=== PATIENT | male | born 1970 | race Caucasian/White ===

== ENCOUNTER 2021-06-26 10:49 | Emergency (ER) | payer MEDICAID ==
--- NOTE | 2021-06-26 11:26 | XRAY Report ---
PROCEDURE: Chest 1 View X-Ray INDICATIONS: Chest pain TECHNIQUE: One view of the chest was acquired. COMPARISON: 02/19/2015 FINDINGS: Surgical changes and devices: None. Lungs and pleura: No pleural effusions or pneumothorax. Lungs are clear. Mediastinum: Mediastinal contours appear normal. Heart size is normal. Bones and chest wall: No suspicious bony lesions. Overlying soft tissues appear unremarkable. IMPRESSION: No acute cardiopulmonary findings Reviewed by: Nikolay Giraldo MD on 06/26/2021 10:24 AM DEBORAH Approved by: Nikolay Giraldo MD on 06/26/2021 10:24 AM AKPATY Station ID: [id number]
[2021-06-26 11:30] LABS: BASOPHILS # (AUTO) 0.1 10^3/uL (0.0-0.1); BASOPHILS % (AUTO) 0.7 %; EOSINOPHILS # (AUTO) 0.2 10^3/uL (0.0-0.7); HCT - HEMATOCRIT 47.6 % (42.0-52.0); HGB - HEMOGLOBIN 16.7 g/dL (14.0-18.0); LYMPHOCYTES # (AUTO) 1.9 10^3/uL (1.5-3.5); LYMPHOCYTES % (AUTO) 20.1 %; MEAN CORPUSCULAR HGB CONC 35.1 g/dL (32.0-36.0); MEAN CORPUSCULAR VOLUME 88.5 fL (80.0-94.0); MEAN PLATELET VOLUME 9.8 fL (7.4-11.4); MONOCYTES # (AUTO) 0.6 10^3/uL (0.0-1.0); MONOCYTES % (AUTO) 6.7 %; NEUTROPHILS # (AUTO) 6.4 10^3/uL (1.5-6.6); PLT - PLATELET COUNT 252 10^3/uL (130-450); RED BLOOD COUNT 5.38 10^6/uL (4.70-6.10); RED CELL DISTRIBUTION WIDTH 12.2 % (12.0-15.0); WHITE BLOOD COUNT 9.2 x10^3/uL (4.8-10.8)
[2021-06-26] MEDS ORDERED: SODIUM CHLORIDE 0.9% 1,000 ML IV STA (11:40)
[2021-06-26] MEDS ORDERED: DEXAMETHASONE 10 MG/ML VIAL IVP STA (11:40)
--- NOTE | 2021-06-26 11:43 | ED Physician Documentation ---
PD HPI CHEST PAIN - Stated complaint Stated Complaint: CHEST PX - Chief complaint Chief Complaint: Cardiac - History obtained from History obtained from: Patient, Family - History of Present Illness Timing - onset: How many days ago (6) Timing - onset during: Rest Timing - duration: Days (6) Timing - details: Abrupt onset, Now resolved, Waxing and waning Quality: Sharp, Pain Location: Left chest, Upper back Improved by: Other (ibuprofen) Worsened by: Palpation, Position Associated symptoms: Other (anxious). No: Shortness of air, Diaphoresis, Nausea, Vomiting, Feeling faint / dizzy, General Weakness, Palpitations, Cough Similar symptoms before: Diagnosis (costochondritis) Recently seen: Not recently seen - Additional information Additional information: Appears well 51-year-old male with a history of anxiety and costochondritis has developed chest pain again. He states that he tends to get pretty excited when he has pain in the left side of his chest. First thing he talks about his a story when he was 10 years old of going to the hospital and having what sounds like a stress test done. The patient relates that 6 days ago he began to have issues with pain in the left chest with episodic sharp pain and this was improved by the use of ibuprofen. He does state that he usually walks 4 miles per day he has not had a change in his exercise tolerance.He has not been ill recently and has no exposure to Covid. He is unimmunized. Review of Systems Constitutional: denies: Fever Eyes: denies: Decreased vision Ears: denies: Ear pain Nose: denies: Congestion Throat: denies: Sore throat Cardiac: reports: Chest pain / pressure. denies: Palpitations Respiratory: denies: Dyspnea, Cough GI: denies: Nausea, Vomiting, Diarrhea : denies: Dysuria, Frequency PD PAST MEDICAL HISTORY - Past Medical History Cardiovascular: High cholesterol - Past Surgical History Past Surgical History: Yes General: Other - Present Medications Home Medications: Ambulatory Orders Medication Instructions Recorded Confirmed Atorvastatin [Lipitor] 10 mg PO DAILY 01/16/15 09/17/15 HYDROcod/ACETAM 5/325 [[place] 5/325] 1 - 2 ea PO Q6H PRN #15 tablet 09/27/15 Hydrocortisone Acetate [Anusol-Hc] 25 mg RC BID PRN #20 supp.rect 10/14/15 Ciprofloxacin HCl [Cipro] 500 mg PO BID #14 tablet 11/01/15 metroNIDAZOLE [Flagyl] 500 mg PO TID #20 tablet 11/01/15 - Allergies Allergies/Adverse Reactions: Allergies Allergy/AdvReac Type Severity Reaction Status Date / Time Penicillins Allergy Intermediate Rash Verified 06/26/21 11:02 buspirone HCl * [From BuSpar] AdvReac Severe Emesis Verified 06/26/21 11:02 cephalexin monohydrate * AdvReac Severe Emesis Verified 06/26/21 11:02 [From Keflex] - Social History Does the pt smoke?: No Smoking Status: Never smoker Does the pt drink ETOH?: No Does the pt have substance abuse?: No - Immunizations Immunizations are current?: Yes - POLST Patient has POLST: No PD ED PE NORMAL - Vitals Vital signs reviewed: Yes (Tachycardic and hypertensive) - General General: Alert and oriented X 3, Well developed/nourished, Other (Anxious appearing male wearing 3 masks) - HEENT HEENT: Atraumatic, PERRL, EOMI - Neck Neck: Supple, no meningeal sign, No bony TTP - Cardiac Cardiac: RRR, No murmur - Respiratory Respiratory: No respiratory distress, Clear bilaterally, Other (There is chest wall tenderness to the lateral chest wall and to the posterior chest wall over the rhomboid muscles on the left side.) - Abdomen Abdomen: Soft, Non tender - Back Back: No CVA TTP, No spinal TTP - Derm Derm: Normal color, Warm and dry, No rash - Extremities Extremities: No deformity, No edema - Neuro Neuro: Alert and oriented X 3, aircraft load controller 2-12 intact, No motor deficit, No sensory deficit, Normal speech Eye Opening: Spontaneous Motor: Obeys Commands Verbal: Oriented GCS Score: 15 - Psych Psych: Normal mood, Normal affect Results - Vitals Vitals: Vital Signs - 24 hr 06/26/21 06/26/21 10:58 11:36 Temperature 36.0 C L 36.5 C Heart Rate 106 H 99 Respiratory 21 16 Rate Blood Pressure 163/122 H 174/100 H O2 Saturation 97 96 Oxygen O2 Source Room air - EKG (time done) 1054 Rate: Rate (enter#) (99) Rhythm: NSR Ischemia: Q waves Other comments: Other comments (RV) Compare to prior EKG: Unchanged from prior EKG (SPT 02-19-2015 no changes) Computer interpretation: Agree with computer - Labs Labs: Laboratory Tests 06/26/21 06/26/21 06/26/21 11:15 11:15 11:15 WBC 9.2 RBC 5.38 Hgb 16.7 Hct 47.6 MCV 88.5 MCH 31.0 MCHC 35.1 RDW 12.2 Plt Count 252 MPV 9.8 Neut # (Auto) 6.4 Lymph # (Auto) 1.9 [place] # (Auto) 0.6 Eos # (Auto) 0.2 Baso # (Auto) 0.1 Absolute Nucleated RBC 0.00 Nucleated RBC % 0.0 Sodium 139 Potassium 3.9 Chloride 105 Carbon Dioxide 22 Anion Gap 12.0 BUN 16 Creatinine 0.9 Estimated GFR (MDRD) 89 Glucose 115 H Calcium 9.8 Total Bilirubin 1.0 AST 136 H ALT 268 H Alkaline Phosphatase 115 Troponin I High Sens 4.1 Total Protein 7.6 Albumin 5.1 Globulin 2.5 Albumin/Globulin Ratio 2.0 Lipase 33 - Rads (name of study) Chest Radiology: Prelim report reviewed (Impression: No acute cardiopulmonary findings.), EMP read indepedently, See rad report Procedures - IVC sono (time) 1130 Bedside IVC sono: IVC measures (cm) (0.74), Dehydration (est 1-2 liter deficit) PD MEDICAL DECISION MAKING - ED course Complexity details: reviewed results, re-evaluated patient, considered differential, d/w patient, d/w family ED course: 51-year-old male with chest wall pain is anxious has unchanged electrocardiogram and he is found to be dehydrated on interrogation the inferior vena cava. He is administered intravenous saline and dexamethasone. Departure - Departure Disposition: 01 Home, Self Care Clinical Impression: Fatty liver, Chest wall pain, Dehydration Condition: Stable Instructions: ED Chest Pain Costochondritis, ED Dehydration, NAFLD Follow-Up: [facility] [Provider Group]
[2021-06-26 11:48] LABS: ALBUMIN 5.1 g/dL (3.2-5.5); CALCIUM 9.8 mg/dL (8.5-10.3); CREATININE 0.9 mg/dL (0.6-1.2); POTASSIUM 3.9 mmol/L (3.5-5.0); TOTAL PROTEIN 7.6 g/dL (6.7-8.2)
[2021-06-26 13:10] VITALS: BP 145/99
== END 2021-06-26 13:10 | disposition home or self-care (01) ==
LOC: ED 10:49
DX: K76.0 Fatty (change of) liver, not elsewhere classified (principal); R07.89 Other chest pain; E86.0 Dehydration
CPT/HCPCS: 36415; 80053; 83690; 84484; 85025; 93005; 96361; 96374; 99284

== ENCOUNTER 2022-08-22 08:40 | Emergency (ER) | payer MEDICAID ==
[2022-08-22 08:58] VITALS: BP 156/96
[2022-08-22] MEDS ORDERED: DEXAMETHASONE 10 MG/ML VIAL IM STA (09:06)
[2022-08-22] MEDS ORDERED: HYDROmorphone 1 MG/ML CARPUJECT IM STA (09:06)
[2022-08-22] MEDS ORDERED: KETOROLAC 60 MG/2 ML VIAL IM STA (09:06)
--- NOTE | 2022-08-22 09:08 | ED Physician Documentation ---
PD HPI BACK PAIN - Stated complaint Stated Complaint: RT HIP PX - Chief complaint Chief Complaint: Back Pain - History obtained from History obtained from: Patient - Additional information Additional information: 52-year-old gentleman has had right low back pain radiating to the right hip for the last 5 days. No specific injury. Its much better if he is standing or having his back and hips flexed. It is worse with position changes and laying flat. There is no associated weakness, numbness, tingling in the legs. No saddle anesthesia or incontinence. No fevers. Review of Systems Constitutional: denies: Fever, Chills Eyes: reports: Reviewed and negative Cardiac: reports: Reviewed and negative Respiratory: reports: Reviewed and negative PD PAST MEDICAL HISTORY - Past Medical History Past Medical History: Yes Cardiovascular: High cholesterol Respiratory: None Neuro: None Endocrine/Autoimmune: None GI: None : None HEENT: None Psych: None Musculoskeletal: None Derm: None - Past Surgical History Past Surgical History: Yes General: Other - Present Medications Home Medications: Ambulatory Orders Medication Instructions Recorded Confirmed Cyclobenzaprine [Flexeril] 10 mg PO TID PRN #20 tablet 08/22/22 HYDROcod/ACETAM 5/325 [[place] 5/325] 1 - 2 tab PO Q6H PRN #15 tablet 08/22/22 Ibuprofen [Motrin] 800 mg PO Q8H PRN #30 tablet 08/22/22 - Allergies Allergies/Adverse Reactions: Allergies Allergy/AdvReac Type Severity Reaction Status Date / Time Penicillins Allergy Intermediate Rash Verified 08/22/22 08:46 buspirone HCl * [From BuSpar] AdvReac Severe Emesis Verified 08/22/22 08:46 cephalexin monohydrate * AdvReac Severe Emesis Verified 08/22/22 08:46 [From Keflex] - Social History Does the pt smoke?: No Smoking Status: Never smoker Does the pt drink ETOH?: No Does the pt have substance abuse?: No - Immunizations Immunizations are current?: No Immunizations: Other immun not current - POLST Patient has POLST: No PD ED PE NORMAL - Vitals Vital signs reviewed: Yes - General General: Alert and oriented X 3, No acute distress - Abdomen Abdomen: Normal bowel sounds, Soft, Non tender - Back Back: Other (Muscular tenderness in the right sciatic notch and low right par alumbar area) - Extremities Extremities: Other (The patient has equal and normal Achilles and patellar reflexes bilaterally. Normal sensation in all areas of the legs. Patient denies saddle anesthesia. Normal strength in flexion-extension at the ankles, knees, and flexion of the hips.) - Neuro Neuro: Alert and oriented X 3, Normal speech Results - Vitals Vitals: Vital Signs - 24 hr 08/22/22 08/22/22 08:47 08:57 Temperature 36.2 C L Heart Rate 95 82 Respiratory 16 16 Rate Blood Pressure 145/98 H 156/96 H O2 Saturation 100 100 Oxygen O2 Source Room air PD MEDICAL DECISION MAKING - ED course ED course: This patient has seemingly uncomplicated musculoskeletal back pain. The patient has no "red flags." Specifically denies IV drug use, fevers, incontinence, saddle anesthesia. Spinal epidural abscess was considered, given that the patient has no fever, is not diabetic, has no spinal tenderness, does not use IV drugs, and has no bilateral neurologic symptoms, the diagnosis of spinal epidural abscess is considered exceedingly unlikely. I am prescribing a short course of short-acting opioid pain medication for this patient. I have reviewed the patients MANAGER CHANGE and no concerning findings were noted. I have discussed that the opioids are for short term therapy only, and will not be refilled from the ED. Departure - Departure Disposition: 01 Home, Self Care Clinical Impression: Back pain, Sciatica Condition: Good Record reviewed to determine appropriate education?: Yes Instructions: ED Spasm Back No Trauma, ED Sciatica Prescriptions: Cyclobenzaprine [Flexeril] 10 mg PO TID PRN #20 tablet PRN Reason: Spasms Ibuprofen [Motrin] 800 mg PO Q8H PRN #30 tablet PRN Reason: PAIN &/OR FEVER HYDROcod/ACETAM 5/325 [[place] 5/325] 1 - 2 tab PO Q6H PRN #15 tablet PRN Reason: Pain Comments: I sent your prescriptions electronically to [facility] in [place]. Call your doctor to arrange a follow-up appointment, make the next available appointment. In the interim, return anytime if worse or if new symptoms develop. I am prescribing a short course of narcotic pain medication for you. These are potentially dangerous and addictive medications that should be used carefully. These medications may constipate you. Take an vdwn-wdo-dywdded stool softener (docusate) twice daily with plenty of water while taking these medications. If you go 24 hours without a bowel movement, take [id number]-nmirwtu miralax, per package instructions. Do not drink or drive while taking these medications. If you received narcotic or sedating medications while in the emergency department, do not drive for 24 hours. Store this medication in a safe, secure place and out of reach of children. It is a violation of federal law to give or sell this medication to another person or to use in a manner other than prescribed. The ED will not refill narcotic prescriptions, including prescriptions lost or stolen. To dispose of unwanted medications: 1. [facility] [address] in [place] has a medication drop box. They accept prescription medications (in pill form) Sunday through Sunday 9:00 a.m. to 5:00 p.m. 2. [facility] [employer] accepts prescription medications (in pill form only) for disposal year round. Call for more information. 3. Contact the [facility] for the next [facility] sponsored prescription drug collection event. , [phone], or [phone]; Note that many narcotic pain relievers also contain Tylenol/acetaminophen. Please ensure that your total dose of acetaminophen from all sources does not exceed 3 g (3000 mg) per day. Forms: Activity restrictions
--- OUTSIDE RECORDS SUMMARY | 2022-08-22 09:24 | EXTERNAL MEDICAL SUMMARY RPT | Continuity of Care Document ---
:1970 Author Organization [facility] Address [address] [place] [address] Phone Allergies and Intolerances date description facility type (no date) [facility] (unknown) Encounters No information. Functional Status No information. Immunizations No information. Medications date description facility hydrocortisone acetate 25 MG/ML / Pram oxine [facility] hydrochloride 10 MG/ML Rectal Cream Problems No information. Procedures date description facility Visit Code Hold All [facility] Results/Labs test date author facility value unit interpret ation Result panel 1 (unknown) (no (unknown) (unknown) (no value) (units (unk nown) date) unknown) (unknown) (no (unknown) (unknown) (no value) (units (unk nown) date) unknown) (unknown) (no (unknown) (unknown) [facility] (units (unknown) date) Medicine unknown) (unknown) (no (unknown) (unknown) [place], [place] (units ( unknown) date) [id number] unknown) (unknown) (no (unknown) (unknown) Draft (units (unkno wn) date) unknown) (unknown) (no (unknown) (unknown) Family Practice (units (unknown) date) Office Visit unknown) (unknown) (no (unknown) (unknown) HIVES (units (unkno wn) date) unknown) (unknown) (no (unknown) (unknown) NAUSEA (units (unkno wn) date) unknown) (unknown) (no (unknown) (unknown) (no value) (units (unk nown) date) unknown) (unknown) (no (unknown) (unknown) 05/29/22 (units (unkno wn) date) unknown) (unknown) (no (unknown) (unknown) 1313 (units (unkno wn) date) unknown) (unknown) (no (unknown) (unknown) [id number] (units (unkno wn) date) unknown) (unknown) (no (unknown) (unknown) Age/Sex: 52 / M (units (unknown) date) Date of Service: unknown) (unknown) (no (unknown) (unknown) Allergies (units (unkn own) date) unknown) (unknown) (no (unknown) (unknown) Attending Dr: (units ( unknown) date) Eva Carter unknown) Lucho (unknown) (no (unknown) (unknown) : 1970 (units (unknown) date) Acct:[id number] unknown) (unknown) (no (unknown) (unknown) Dept at (units (unkno wn) date) . unknown) (unknown) (no (unknown) (unknown) Documented By: (units (unknown) date) Eva Carter unknown) Lucho 05/29/22 (unknown) (no (unknown) (unknown) Family History (units (unknown) date) (Reviewed 12/27/20 unknown) @ 18:17 by VASU Parada) (unknown) (no (unknown) (unknown) Father Lipids (units ( unknown) date) abnormal unknown) (unknown) (no (unknown) (unknown) Intake (units (unkno wn) date) unknown) (unknown) (no (unknown) (unknown) Intake Note: (units (u nknown) date) unknown) (unknown) (no (unknown) (unknown) Intake performed (units (unknown) date) by: Rc Sibley unknown) (unknown) (no (unknown) (unknown) Intake- Clincial (units (unknown) date) Staff unknown) (unknown) (no (unknown) (unknown) Loc: [facility] (units (unkno wn) date) unknown) (unknown) (no (unknown) (unknown) Medical History (units (unknown) date) (Reviewed 12/27/20 unknown) @ 18:17 by VASU Parada) (unknown) (no (unknown) (unknown) No significant (units (unknown) date) medical problems unknown) (unknown) (no (unknown) (unknown) PFSH (units (unkno wn) date) unknown) (unknown) (no (unknown) (unknown) Patient: (units (unkno wn) date) Mushtaq Starks W unknown) MR#: [id number] (unknown) (no (unknown) (unknown) Pt presents with (units (unknown) date) painful unknown) hemorrhoids. (unknown) (no (unknown) (unknown) Reason For Visit (units (unknown) date) unknown) (unknown) (no (unknown) (unknown) Signed By: (units (unk nown) date) unknown) (unknown) (no (unknown) (unknown) Smoking Status: (units (unknown) date) Never smoker unknown) (unknown) (no (unknown) (unknown) This note may (units ( unknown) date) have been all or unknown) partially generated using voice recognition (unknown) (no (unknown) (unknown) Tobacco + (units (unkn own) date) Substance Use unknown) (unknown) (no (unknown) (unknown) Tobacco Status (units (unknown) date) unknown) (unknown) (no (unknown) (unknown) Visit Reasons: (units (unknown) date) Sore hemorrhoids unknown) (unknown) (no (unknown) (unknown) buspirone Allergy (units (unknown) date) (Unknown, unknown) Unverified 12/27/20 17:59) (unknown) (no (unknown) (unknown) cyclobenzaprine (units (unknown) date) Allergy (Mild, unknown) Unverified 12/27/20 17:59) (unknown) (no (unknown) (unknown) have occurred. If (units (unknown) date) there are any unknown) questions, please contact the Medical Records (unknown) (no (unknown) (unknown) may occur. (units (unk nown) date) Occasional unknown) wrong-word or 'sound-alike' substitutions may have (unknown) (no (unknown) (unknown) occurred due to (units (unknown) date) the inherent unknown) limitations of voice recognition software. Please (unknown) (no (unknown) (unknown) penicillin G (units (u nknown) date) Allergy (Mild, unknown) Unverified 12/27/20 17:59) (unknown) (no (unknown) (unknown) read the note (units ( unknown) date) carefully and unknown) recognize, using context, where these substitutions (unknown) (no (unknown) (unknown) software. 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 Result panel 2 (unknown) (no (unknown) (unknown) (no value) (units (unk nown) date) unknown) (unknown) (no (unknown) (unknown) (no value) (units (unk nown) date) unknown) (unknown) (no (unknown) (unknown) (no value) (units (unk nown) date) unknown) (unknown) (no (unknown) (unknown) 05/29/22 (units (unkno wn) date) unknown) (unknown) (no (unknown) (unknown) 13:17 (units (unkno wn) date) unknown) (unknown) (no (unknown) (unknown) [facility] (units (unknown) date) Medicine unknown) (unknown) (no (unknown) (unknown) [place] (units ( unknown) date) [id number] unknown) (unknown) (no (unknown) (unknown) Draft (units (unkno wn) date) unknown) (unknown) (no (unknown) (unknown) Family Practice (units (unknown) date) Office Visit unknown) (unknown) (no (unknown) (unknown) HIVES (units (unkno wn) date) unknown) (unknown) (no (unknown) (unknown) NAUSEA (units (unkno wn) date) unknown) (unknown) (no (unknown) (unknown) (no value) (units (unk nown) date) unknown) (unknown) (no (unknown) (unknown) 05/29/22 (units (unkno wn) date) unknown) (unknown) (no (unknown) (unknown) 1313 (units (unkno wn) date) unknown) (unknown) (no (unknown) (unknown) [id number] (units (unkno wn) date) unknown) (unknown) (no (unknown) (unknown) Age/Sex: 52 / M (units (unknown) date) Date of Service: unknown) (unknown) (no (unknown) (unknown) Allergies (units (unkn own) date) unknown) (unknown) (no (unknown) (unknown) Attending Dr: (units ( unknown) date) Eva Carter unknown) PGeoffAPooja (unknown) (no (unknown) (unknown) BMI 31.8 (units (unkno wn) date) unknown) (unknown) (no (unknown) (unknown) BP 136/90 (units (unkn own) date) unknown) (unknown) (no (unknown) (unknown) Blood Pressure (units (unknown) date) Location Lt unknown) brachial (unknown) (no (unknown) (unknown) : 1970 (units (unknown) date) Acct:[id number] unknown) (unknown) (no (unknown) (unknown) Dept at (units (unkno wn) date) . unknown) (unknown) (no (unknown) (unknown) Documented By: (units (unknown) date) Eva Carter unknownEddie Yepez 05/29/22 (unknown) (no (unknown) (unknown) Family History (units (unknown) date) (Reviewed 12/27/20 unknown) @ 18:17 by VASU Parada) (unknown) (no (unknown) (unknown) Father Lipids (units ( unknown) date) abnormal unknown) (unknown) (no (unknown) (unknown) Height 5 ft 9 in (units (unknown) date) unknown) (unknown) (no (unknown) (unknown) Intake (units (unkno wn) date) unknown) (unknown) (no (unknown) (unknown) Intake Note: (units (u nknown) date) unknown) (unknown) (no (unknown) (unknown) Intake performed (units (unknown) date) by: Rc Sibley unknown) (unknown) (no (unknown) (unknown) Intake- Clincial (units (unknown) date) Staff unknown) (unknown) (no (unknown) (unknown) Loc: [facility] (units (unkno wn) date) unknown) (unknown) (no (unknown) (unknown) Medical History (units (unknown) date) (Reviewed 12/27/20 unknown) @ 18:17 by VASU Parada) (unknown) (no (unknown) (unknown) Medications (units (un known) date) unknown) (unknown) (no (unknown) (unknown) No Known Home (units ( unknown) date) Medications unknown) 12/27/20 [History Confirmed 05/29/22] (unknown) (no (unknown) (unknown) No significant (units (unknown) date) medical problems unknown) (unknown) (no (unknown) (unknown) Oxygen Delivery (units (unknown) date) Method room air unknown) (unknown) (no (unknown) (unknown) PFSH (units (unkno wn) date) unknown) (unknown) (no (unknown) (unknown) Patient: (units (unkno wn) date) Mushtaq Starks W unknown) MR#: [id number] (unknown) (no (unknown) (unknown) Position Standing (units (unknown) date) unknown) (unknown) (no (unknown) (unknown) Pt presents with (units (unknown) date) painful unknown) hemorrhoids for about 2 weeks. (unknown) (no (unknown) (unknown) Pulse 106 H (units (un known) date) unknown) (unknown) (no (unknown) (unknown) Pulse Oximetry (units (unknown) date) (%) 99 unknown) (unknown) (no (unknown) (unknown) Pulse Source (units (u nknown) date) Monitor unknown) (unknown) (no (unknown) (unknown) Reason For Visit (units (unknown) date) unknown) (unknown) (no (unknown) (unknown) Respiration 14 (units (unknown) date) unknown) (unknown) (no (unknown) (unknown) Signed By: (units (unk nown) date) unknown) (unknown) (no (unknown) (unknown) Smoking Status: (units (unknown) date) Never smoker unknown) (unknown) (no (unknown) (unknown) Temp 96.9 F L (units ( unknown) date) unknown) (unknown) (no (unknown) (unknown) Temp Source Skin (units (unknown) date) unknown) (unknown) (no (unknown) (unknown) This note may (units ( unknown) date) have been all or unknown) partially generated using voice recognition (unknown) (no (unknown) (unknown) Tobacco + (units (unkn own) date) Substance Use unknown) (unknown) (no (unknown) (unknown) Tobacco Status (units (unknown) date) unknown) (unknown) (no (unknown) (unknown) Visit Reasons: (units (unknown) date) Sore hemorrhoids unknown) (unknown) (no (unknown) (unknown) Vitals (units (unkno wn) date) unknown) (unknown) (no (unknown) (unknown) Weight 216 lb (units ( unknown) date) unknown) (unknown) (no (unknown) (unknown) buspirone Allergy (units (unknown) date) (Unknown, unknown) Unverified 05/29/22 13:17) (unknown) (no (unknown) (unknown) cyclobenzaprine (units (unknown) date) Allergy (Mild, unknown) Unverified 05/29/22 13:17) (unknown) (no (unknown) (unknown) have occurred. If (units (unknown) date) there are any unknown) questions, please contact the Medical Records (unknown) (no (unknown) (unknown) may occur. (units (unk nown) date) Occasional unknown) wrong-word or 'sound-alike' substitutions may have (unknown) (no (unknown) (unknown) occurred due to (units (unknown) date) the inherent unknown) limitations of voice recognition software. Please (unknown) (no (unknown) (unknown) penicillin G (units (u nknown) date) Allergy (Mild, unknown) Unverified 05/29/22 13:17) (unknown) (no (unknown) (unknown) read the note (units ( unknown) date) carefully and unknown) recognize, using context, where these substitutions (unknown) (no (unknown) (unknown) software. 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 Result panel 3 (unknown) (no (unknown) (unknown) (no value) (units (unk nown) date) unknown) (unknown) (no (unknown) (unknown) Medications: (units (u nknown) date) unknown) (unknown) (no (unknown) (unknown) (no value) (units (unk nown) date) unknown) (unknown) (no (unknown) (unknown) (no value) (units (unk nown) date) unknown) (unknown) (no (unknown) (unknown) 05/29/22 (units (unkno wn) date) unknown) (unknown) (no (unknown) (unknown) 13:17 (units (unkno wn) date) unknown) (unknown) (no (unknown) (unknown) [facility] (units (unknown) date) Medicine unknown) (unknown) (no (unknown) (unknown) [place] (units ( unknown) date) [id number] unknown) (unknown) (no (unknown) (unknown) Draft (units (unkno wn) date) unknown) (unknown) (no (unknown) (unknown) Family Practice (units (unknown) date) Office Visit unknown) (unknown) (no (unknown) (unknown) HIVES (units (unkno wn) date) unknown) (unknown) (no (unknown) (unknown) NAUSEA (units (unkno wn) date) unknown) (unknown) (no (unknown) (unknown) apply up to 4x (units (unknown) date) daily as needed 1 unknown) supp HI .prn 12 ea 0RF (unknown) (no (unknown) (unknown) do not use for (units (unknown) date) more than 7 days 1 unknown) applic HI BID PRN 30 grams 0RF hemorrhoids (unknown) (no (unknown) (unknown) (no value) (units (unk nown) date) unknown) (unknown) (no (unknown) (unknown) #30 grams (units (unkn own) date) 05/29/22 [Rx unknown) Confirmed 05/29/22] (unknown) (no (unknown) (unknown) 05/29/22 (units (unkno wn) date) unknown) (unknown) (no (unknown) (unknown) 05/29/22 [Rx (units (u nknown) date) Confirmed unknown) 05/29/22] (unknown) (no (unknown) (unknown) 1313 (units (unkno wn) date) unknown) (unknown) (no (unknown) (unknown) [id number] (units (unkno wn) date) unknown) (unknown) (no (unknown) (unknown) Age/Sex: 52 / M (units (unknown) date) Date of Service: unknown) (unknown) (no (unknown) (unknown) Allergies (units (unkn own) date) unknown) (unknown) (no (unknown) (unknown) Assessment + Plan (units (unknown) date) unknown) (unknown) (no (unknown) (unknown) Attending Dr: (units ( unknown) date) Eva Carter unknown) Lucho (unknown) (no (unknown) (unknown) BMI 31.8 (units (unkno wn) date) unknown) (unknown) (no (unknown) (unknown) BP 136/90 (units (unkn own) date) unknown) (unknown) (no (unknown) (unknown) Blood Pressure (units (unknown) date) Location Lt unknown) brachial (unknown) (no (unknown) (unknown) : 1970 (units (unknown) date) Acct:[id number] unknown) (unknown) (no (unknown) (unknown) Dept at (units (unkno wn) date) . unknown) (unknown) (no (unknown) (unknown) Documented By: (units (unknown) date) Eva Carter unknown) Lucho 05/29/22 (unknown) (no (unknown) (unknown) Family History (units (unknown) date) (Reviewed 12/27/20 unknown) @ 18:17 by VASU Parada) (unknown) (no (unknown) (unknown) Father Lipids (units ( unknown) date) abnormal unknown) (unknown) (no (unknown) (unknown) Height 5 ft 9 in (units (unknown) date) unknown) (unknown) (no (unknown) (unknown) Intake (units (unkno wn) date) unknown) (unknown) (no (unknown) (unknown) Intake Note: (units (u nknown) date) unknown) (unknown) (no (unknown) (unknown) Intake performed (units (unknown) date) by: Rc Sibley unknown) (unknown) (no (unknown) (unknown) Intake- Clincial (units (unknown) date) Staff unknown) (unknown) (no (unknown) (unknown) Loc: [facility] (units (unkno wn) date) unknown) (unknown) (no (unknown) (unknown) Medical History (units (unknown) date) (Reviewed 12/27/20 unknown) @ 18:17 by VASU Parada) (unknown) (no (unknown) (unknown) Medications (units (un known) date) unknown) (unknown) (no (unknown) (unknown) New (units (unkno wn) date) unknown) (unknown) (no (unknown) (unknown) No significant (units (unknown) date) medical problems unknown) (unknown) (no (unknown) (unknown) Oxygen Delivery (units (unknown) date) Method room air unknown) (unknown) (no (unknown) (unknown) PFSH (units (unkno wn) date) unknown) (unknown) (no (unknown) (unknown) Patient: (units (unkno wn) date) Mushtaq Starks W unknown) MR#: [id number] (unknown) (no (unknown) (unknown) Position Standing (units (unknown) date) unknown) (unknown) (no (unknown) (unknown) Pt presents with (units (unknown) date) painful unknown) hemorrhoids for about 2 weeks. (unknown) (no (unknown) (unknown) Pulse 106 H (units (un known) date) unknown) (unknown) (no (unknown) (unknown) Pulse Oximetry (units (unknown) date) (%) 99 unknown) (unknown) (no (unknown) (unknown) Pulse Source (units (u nknown) date) Monitor unknown) (unknown) (no (unknown) (unknown) Reason For Visit (units (unknown) date) unknown) (unknown) (no (unknown) (unknown) Respiration 14 (units (unknown) date) unknown) (unknown) (no (unknown) (unknown) Signed By: (units (unk nown) date) unknown) (unknown) (no (unknown) (unknown) Smoking Status: (units (unknown) date) Never smoker unknown) (unknown) (no (unknown) (unknown) Temp 96.9 F L (units ( unknown) date) unknown) (unknown) (no (unknown) (unknown) Temp Source Skin (units (unknown) date) unknown) (unknown) (no (unknown) (unknown) This note may (units ( unknown) date) have been all or unknown) partially generated using voice recognition (unknown) (no (unknown) (unknown) Tobacco + (units (unkn own) date) Substance Use unknown) (unknown) (no (unknown) (unknown) Tobacco Status (units (unknown) date) unknown) (unknown) (no (unknown) (unknown) Visit Reasons: (units (unknown) date) Sore hemorrhoids unknown) (unknown) (no (unknown) (unknown) Vitals (units (unkno wn) date) unknown) (unknown) (no (unknown) (unknown) Weight 216 lb (units ( unknown) date) unknown) (unknown) (no (unknown) (unknown) buspirone Allergy (units (unknown) date) (Unknown, unknown) Unverified 05/29/22 13:17) (unknown) (no (unknown) (unknown) cyclobenzaprine (units (unknown) date) Allergy (Mild, unknown) Unverified 05/29/22 13:17) (unknown) (no (unknown) (unknown) have occurred. If (units (unknown) date) there are any unknown) questions, please contact the Medical Records (unknown) (no (unknown) (unknown) hydrocortisone-pr (units (unknown) date) amoxine 2.5 %-1 % unknown) rectal cream 1 applic HI BID PRN hemorrhoids (unknown) (no (unknown) (unknown) hydrocortisone-pr (units (unknown) date) amoxine 2.5-1 % unknown) (unknown) (no (unknown) (unknown) may occur. (units (unk nown) date) Occasional unknown) wrong-word or 'sound-alike' substitutions may have (unknown) (no (unknown) (unknown) occurred due to (units (unknown) date) the inherent unknown) limitations of voice recognition software. Please (unknown) (no (unknown) (unknown) penicillin G (units (u nknown) date) Allergy (Mild, unknown) Unverified 05/29/22 13:17) (unknown) (no (unknown) (unknown) phenylephrine (units ( unknown) date) 0.25 %-hard fat unknown) 88.7 % rectal suppository 1 supp HI .prn #12 ea (unknown) (no (unknown) (unknown) phenylephrine-andrez (units (unknown) date) d fat 0.25-88.7 % unknown) (unknown) (no (unknown) (unknown) read the note (units ( unknown) date) carefully and unknown) recognize, using context, where these substitutions (unknown) (no (unknown) (unknown) software. 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 Result panel 4 (unknown) (no (unknown) (unknown) (no value) (units (unk nown) date) unknown) (unknown) (no (unknown) (unknown) Medications: (units (u nknown) date) unknown) (unknown) (no (unknown) (unknown) (no value) (units (unk nown) date) unknown) (unknown) (no (unknown) (unknown) (no value) (units (unk nown) date) unknown) (unknown) (no (unknown) (unknown) 05/29/22 (units (unkno wn) date) unknown) (unknown) (no (unknown) (unknown) 13:17 (units (unkno wn) date) unknown) (unknown) (no (unknown) (unknown) [facility] (units (unknown) date) Medicine unknown) (unknown) (no (unknown) (unknown) [place] (units ( unknown) date) [id number] unknown) (unknown) (no (unknown) (unknown) Draft (units (unkno wn) date) unknown) (unknown) (no (unknown) (unknown) Family Practice (units (unknown) date) Office Visit unknown) (unknown) (no (unknown) (unknown) HIVES (units (unkno wn) date) unknown) (unknown) (no (unknown) (unknown) NAUSEA (units (unkno wn) date) unknown) (unknown) (no (unknown) (unknown) apply up to 4x (units (unknown) date) daily as needed 1 unknown) supp HI .prn 12 ea 0RF (unknown) (no (unknown) (unknown) do not use for (units (unknown) date) more than 7 days 1 unknown) applic HI BID PRN 30 grams 0RF hemorrhoids (unknown) (no (unknown) (unknown) (no value) (units (unk nown) date) unknown) (unknown) (no (unknown) (unknown) #30 grams (units (unkn own) date) 05/29/22 [Rx unknown) Confirmed 05/29/22] (unknown) (no (unknown) (unknown) 05/29/22 (units (unkno wn) date) unknown) (unknown) (no (unknown) (unknown) 05/29/22 [Rx (units (u nknown) date) Confirmed unknown) 05/29/22] (unknown) (no (unknown) (unknown) 1313 (units (unkno wn) date) unknown) (unknown) (no (unknown) (unknown) [id number] (units (unkno wn) date) unknown) (unknown) (no (unknown) (unknown) Age/Sex: 52 / M (units (unknown) date) Date of Service: unknown) (unknown) (no (unknown) (unknown) Allergies (units (unkn own) date) unknown) (unknown) (no (unknown) (unknown) Assessment + Plan (units (unknown) date) unknown) (unknown) (no (unknown) (unknown) Attending Dr: (units ( unknown) date) Eva Carter unknown) Lucho (unknown) (no (unknown) (unknown) BMI 31.8 (units (unkno wn) date) unknown) (unknown) (no (unknown) (unknown) BP 136/90 (units (unkn own) date) unknown) (unknown) (no (unknown) (unknown) Blood Pressure (units (unknown) date) Location Lt unknown) brachial (unknown) (no (unknown) (unknown) : 1970 (units (unknown) date) Acct:[id number] unknown) (unknown) (no (unknown) (unknown) Dept at (units (unkno wn) date) . unknown) (unknown) (no (unknown) (unknown) Documented By: (units (unknown) date) Eva Carter unknown) Lucho 05/29/22 (unknown) (no (unknown) (unknown) Family History (units (unknown) date) (Reviewed 12/27/20 unknown) @ 18:17 by VASU Parada) (unknown) (no (unknown) (unknown) Father Lipids (units ( unknown) date) abnormal unknown) (unknown) (no (unknown) (unknown) Height 175.26 cm (units (unknown) date) unknown) (unknown) (no (unknown) (unknown) Intake (units (unkno wn) date) unknown) (unknown) (no (unknown) (unknown) Intake Note: (units (u nknown) date) unknown) (unknown) (no (unknown) (unknown) Intake performed (units (unknown) date) by: Rc Sibley unknown) (unknown) (no (unknown) (unknown) Intake- Clincial (units (unknown) date) Staff unknown) (unknown) (no (unknown) (unknown) Loc: [facility] (units (unkno wn) date) unknown) (unknown) (no (unknown) (unknown) Medical History (units (unknown) date) (Reviewed 12/27/20 unknown) @ 18:17 by VASU Parada) (unknown) (no (unknown) (unknown) Medications (units (un known) date) unknown) (unknown) (no (unknown) (unknown) New (units (unkno wn) date) unknown) (unknown) (no (unknown) (unknown) No significant (units (unknown) date) medical problems unknown) (unknown) (no (unknown) (unknown) Oxygen Delivery (units (unknown) date) Method room air unknown) (unknown) (no (unknown) (unknown) PFSH (units (unkno wn) date) unknown) (unknown) (no (unknown) (unknown) Patient: (units (unkno wn) date) Mushtaq Starks unknown) MR#: [id number] (unknown) (no (unknown) (unknown) Position Standing (units (unknown) date) unknown) (unknown) (no (unknown) (unknown) Pt presents with (units (unknown) date) painful unknown) hemorrhoids for about 2 weeks. (unknown) (no (unknown) (unknown) Pulse 106 H (units (un known) date) unknown) (unknown) (no (unknown) (unknown) Pulse Oximetry (units (unknown) date) (%) 99 unknown) (unknown) (no (unknown) (unknown) Pulse Source (units (u nknown) date) Monitor unknown) (unknown) (no (unknown) (unknown) Reason For Visit (units (unknown) date) unknown) (unknown) (no (unknown) (unknown) Respiration 14 (units (unknown) date) unknown) (unknown) (no (unknown) (unknown) Signed By: (units (unk nown) date) unknown) (unknown) (no (unknown) (unknown) Smoking Status: (units (unknown) date) Never smoker unknown) (unknown) (no (unknown) (unknown) Temp 96.9 F L (units ( unknown) date) unknown) (unknown) (no (unknown) (unknown) Temp Source Skin (units (unknown) date) unknown) (unknown) (no (unknown) (unknown) This note may (units ( unknown) date) have been all or unknown) partially generated using voice recognition (unknown) (no (unknown) (unknown) Tobacco + (units (unkn own) date) Substance Use unknown) (unknown) (no (unknown) (unknown) Tobacco Status (units (unknown) date) unknown) (unknown) (no (unknown) (unknown) Visit Reasons: (units (unknown) date) Sore hemorrhoids unknown) (unknown) (no (unknown) (unknown) Vitals (units (unkno wn) date) unknown) (unknown) (no (unknown) (unknown) Weight 97.976 kg (units (unknown) date) unknown) (unknown) (no (unknown) (unknown) buspirone Allergy (units (unknown) date) (Unknown, unknown) Unverified 05/29/22 13:17) (unknown) (no (unknown) (unknown) cyclobenzaprine (units (unknown) date) Allergy (Mild, unknown) Unverified 05/29/22 13:17) (unknown) (no (unknown) (unknown) have occurred. If (units (unknown) date) there are any unknown) questions, please contact the Medical Records (unknown) (no (unknown) (unknown) hydrocortisone-pr (units (unknown) date) amoxine 2.5 %-1 % unknown) rectal cream 1 applic HI BID PRN hemorrhoids (unknown) (no (unknown) (unknown) hydrocortisone-pr (units (unknown) date) amoxine 2.5-1 % unknown) (unknown) (no (unknown) (unknown) may occur. (units (unk nown) date) Occasional unknown) wrong-word or 'sound-alike' substitutions may have (unknown) (no (unknown) (unknown) occurred due to (units (unknown) date) the inherent unknown) limitations of voice recognition software. Please (unknown) (no (unknown) (unknown) penicillin G (units (u nknown) date) Allergy (Mild, unknown) Unverified 05/29/22 13:17) (unknown) (no (unknown) (unknown) phenylephrine (units ( unknown) date) 0.25 %-hard fat unknown) 88.7 % rectal suppository 1 supp HI .prn #12 ea (unknown) (no (unknown) (unknown) phenylephrine-andrez (units (unknown) date) d fat 0.25-88.7 % unknown) (unknown) (no (unknown) (unknown) read the note (units ( unknown) date) carefully and unknown) recognize, using context, where these substitutions (unknown) (no (unknown) (unknown) software. 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 Result panel 5 (unknown) (no (unknown) (unknown) (no value) (units (unk nown) date) unknown) (unknown) (no (unknown) (unknown) Medications: (units (u nknown) date) unknown) (unknown) (no (unknown) (unknown) Qualifiers: (units (un known) date) unknown) (unknown) (no (unknown) (unknown) (no value) (units (unk nown) date) unknown) (unknown) (no (unknown) (unknown) (no value) (units (unk nown) date) unknown) (unknown) (no (unknown) (unknown) 05/29/22 (units (unkno wn) date) unknown) (unknown) (no (unknown) (unknown) 05/29/22 1409 (units ( unknown) date) unknown) (unknown) (no (unknown) (unknown) 13:17 (units (unkno wn) date) unknown) (unknown) (no (unknown) (unknown) [facility] (units (unknown) date) Medicine unknown) (unknown) (no (unknown) (unknown) [place] (units ( unknown) date) [id number] unknown) (unknown) (no (unknown) (unknown) Family Practice (units (unknown) date) Office Visit unknown) (unknown) (no (unknown) (unknown) HIVES (units (unkno wn) date) unknown) (unknown) (no (unknown) (unknown) Hemorrhoid type: (units (unknown) date) unspecified unknown) Qualified Code(s): K64.9 - Unspecified (unknown) (no (unknown) (unknown) NAUSEA (units (unkno wn) date) unknown) (unknown) (no (unknown) (unknown) Signed (units (unkno wn) date) unknown) (unknown) (no (unknown) (unknown) apply up to 4x (units (unknown) date) daily as needed 1 unknown) supp HI .prn 12 ea 0RF (unknown) (no (unknown) (unknown) do not use for (units (unknown) date) more than 7 days 1 unknown) applic HI BID PRN 30 grams 0RF hemorrhoids (unknown) (no (unknown) (unknown) (no value) (units (unk nown) date) unknown) (unknown) (no (unknown) (unknown) #30 grams (units (unkn own) date) 05/29/22 [Rx unknown) Confirmed 05/29/22] (unknown) (no (unknown) (unknown) (1) Hemorrhoids: (units (unknown) date) unknown) (unknown) (no (unknown) (unknown) 05/29/22 (units (unkno wn) date) unknown) (unknown) (no (unknown) (unknown) 05/29/22 [Rx (units (u nknown) date) Confirmed unknown) 05/29/22] (unknown) (no (unknown) (unknown) 1313 (units (unkno wn) date) unknown) (unknown) (no (unknown) (unknown) [id number] (units (unkno wn) date) unknown) (unknown) (no (unknown) (unknown) Age/Sex: 52 / M (units (unknown) date) Date of Service: unknown) (unknown) (no (unknown) (unknown) Allergies (units (unkn own) date) unknown) (unknown) (no (unknown) (unknown) Assessment + Plan (units (unknown) date) unknown) (unknown) (no (unknown) (unknown) Attending Dr: (units ( unknown) date) Eva Carter unknown) P.A-C (unknown) (no (unknown) (unknown) BMI 31.8 (units (unkno wn) date) unknown) (unknown) (no (unknown) (unknown) BP 136/90 (units (unkn own) date) unknown) (unknown) (no (unknown) (unknown) Blood Pressure (units (unknown) date) Location Lt unknown) brachial (unknown) (no (unknown) (unknown) CARDIOVASCULAR: (units (unknown) date) Denies chest pain, unknown) pressure, palpitations, or edema (unknown) (no (unknown) (unknown) CARDIOVASCULAR: (units (unknown) date) Regular rate and unknown) rhythm without murmurs, gallops, or rubs. (unknown) (no (unknown) (unknown) Chief Complaint (units (unknown) date) unknown) (unknown) (no (unknown) (unknown) Chief Complaint: (units (unknown) date) painful unknown) hemorrhoids (unknown) (no (unknown) (unknown) : 1970 (units (unknown) date) Acct:[id number] unknown) (unknown) (no (unknown) (unknown) Dept at (units (unkno wn) date) . unknown) (unknown) (no (unknown) (unknown) Details: (units (unkno wn) date) unknown) (unknown) (no (unknown) (unknown) Documented By: (units (unknown) date) Eva Carter unknown) Lucho 05/29/22 (unknown) (no (unknown) (unknown) Exam (units (unkno wn) date) unknown) (unknown) (no (unknown) (unknown) Exam Narrative (units (unknown) date) unknown) (unknown) (no (unknown) (unknown) Exam Narrative: (units (unknown) date) unknown) (unknown) (no (unknown) (unknown) Family History (units (unknown) date) (Reviewed 05/29/22 unknown) @ 14:05 by Eva Carter PA-C) (unknown) (no (unknown) (unknown) Father Lipids (units ( unknown) date) abnormal unknown) (unknown) (no (unknown) (unknown) Findings and (units (u nknown) date) clinic/ER return unknown) precautions discussed with patient/family who (unknown) (no (unknown) (unknown) GASTROINTESTINAL: (units (unknown) date) See HPI unknown) (unknown) (no (unknown) (unknown) GASTROINTESTINAL: (units (unknown) date) External unknown) hemorrhoids visible. Internal hemorrhoids palpated (unknown) (no (unknown) (unknown) GENERAL: (units (unkno wn) date) Well-developed unknown) patient, in mild distress. (unknown) (no (unknown) (unknown) GENERAL: Denies (units (unknown) date) fatigue, fever, or unknown) chills (unknown) (no (unknown) (unknown) HEENT: Denies ear (units (unknown) date) pain, vision unknown) changes, sore throat, or difficulty swallowing (unknown) (no (unknown) (unknown) HEENT: PERRLA. (units (unknown) date) Airway patent. unknown) (unknown) (no (unknown) (unknown) HPI (units (unkno wn) date) unknown) (unknown) (no (unknown) (unknown) HPI and exam (units (u nknown) date) suggestive unknown) hemorrhoids. Rectal suppository prescribed as well as (unknown) (no (unknown) (unknown) He also recently (units (unknown) date) just bought a unknown) donut seat pillow for his car. (unknown) (no (unknown) (unknown) Height 175.26 cm (units (unknown) date) unknown) (unknown) (no (unknown) (unknown) Intake (units (unkno wn) date) unknown) (unknown) (no (unknown) (unknown) Intake Note: (units (u nknown) date) unknown) (unknown) (no (unknown) (unknown) Intake performed (units (unknown) date) by: Rc Sibley unknown) (unknown) (no (unknown) (unknown) Intake- Clincial (units (unknown) date) Staff unknown) (unknown) (no (unknown) (unknown) Loc: [facility] (units (unkno wn) date) unknown) (unknown) (no (unknown) (unknown) Medical History (units (unknown) date) (Reviewed 05/29/22 unknown) @ 14:05 by Eva Carter PA-C) (unknown) (no (unknown) (unknown) Medications (units (un known) date) unknown) (unknown) (no (unknown) (unknown) New (units (unkno wn) date) unknown) (unknown) (no (unknown) (unknown) No significant (units (unknown) date) medical problems unknown) (unknown) (no (unknown) (unknown) Oxygen Delivery (units (unknown) date) Method room air unknown) (unknown) (no (unknown) (unknown) PFSH (units (unkno wn) date) unknown) (unknown) (no (unknown) (unknown) Patient is a (units (u nknown) date) 52-year-old male unknown) presenting with complaints of painful hemorrhoids (unknown) (no (unknown) (unknown) Patient: (units (unkno wn) date) Mushtaq Starks unknown) MR#: [id number] (unknown) (no (unknown) (unknown) Plan (units (unkno wn) date) unknown) (unknown) (no (unknown) (unknown) Position Standing (units (unknown) date) unknown) (unknown) (no (unknown) (unknown) Pt presents with (units (unknown) date) painful unknown) hemorrhoids for about 2 weeks. (unknown) (no (unknown) (unknown) Pulse 106 H (units (un known) date) unknown) (unknown) (no (unknown) (unknown) Pulse Oximetry (units (unknown) date) (%) 99 unknown) (unknown) (no (unknown) (unknown) Pulse Source (units (u nknown) date) Monitor unknown) (unknown) (no (unknown) (unknown) RESPIRATORY: Clear (units (unknown) date) to auscultation. unknown) Breath sounds equal bilaterally. No wheezes, (unknown) (no (unknown) (unknown) RESPIRATORY: (units (u nknown) date) Denies shortness unknown) of breath, cough, or wheezing (unknown) (no (unknown) (unknown) ROS (units (unkno wn) date) unknown) (unknown) (no (unknown) (unknown) ROS Narrative (units ( unknown) date) unknown) (unknown) (no (unknown) (unknown) ROS Narrative: (units (unknown) date) unknown) (unknown) (no (unknown) (unknown) Reason For Visit (units (unknown) date) unknown) (unknown) (no (unknown) (unknown) Respiration 14 (units (unknown) date) unknown) (unknown) (no (unknown) (unknown) Signed By: (units (unk nown) date) <Electronically unknown) signed by Eva Carter> (unknown) (no (unknown) (unknown) Smoking Status: (units (unknown) date) Never smoker unknown) (unknown) (no (unknown) (unknown) Temp 96.9 F L (units ( unknown) date) unknown) (unknown) (no (unknown) (unknown) Temp Source Skin (units (unknown) date) unknown) (unknown) (no (unknown) (unknown) This note may (units ( unknown) date) have been all or unknown) partially generated using voice recognition (unknown) (no (unknown) (unknown) Tobacco + (units (unkn own) date) Substance Use unknown) (unknown) (no (unknown) (unknown) Tobacco Status (units (unknown) date) unknown) (unknown) (no (unknown) (unknown) Visit Reasons: (units (unknown) date) Sore hemorrhoids unknown) (unknown) (no (unknown) (unknown) Vitals (units (unkno wn) date) unknown) (unknown) (no (unknown) (unknown) Weight 97.976 kg (units (unknown) date) unknown) (unknown) (no (unknown) (unknown) and limiting (units (u nknown) date) abdominal unknown) straining whenever possible. Follow up with primary if (unknown) (no (unknown) (unknown) applying topical (units (unknown) date) preparation H with unknown) limited relief. He has been taking MiraLax (unknown) (no (unknown) (unknown) buspirone Allergy (units (unknown) date) (Unknown, unknown) Unverified 05/29/22 13:17) (unknown) (no (unknown) (unknown) cyclobenzaprine (units (unknown) date) Allergy (Mild, unknown) Unverified 05/29/22 13:17) (unknown) (no (unknown) (unknown) daily and reports (units (unknown) date) his stools are unknown) increasingly softer and less painful to pass. (unknown) (no (unknown) (unknown) days straight. (units (unknown) date) Encouraged unknown) continuing MiraLax, utilizing his donut seat pillow, (unknown) (no (unknown) (unknown) food delivery and (units (unknown) date) reports unknown) hemorrhoids are worse after being seated in the car (unknown) (no (unknown) (unknown) for long periods (units (unknown) date) of time. He unknown) additionally reports occasional blood on his (unknown) (no (unknown) (unknown) for the past 2 (units (unknown) date) weeks. He reports unknown) a chronic history of hemorrhoids. He does (unknown) (no (unknown) (unknown) have occurred. If (units (unknown) date) there are any unknown) questions, please contact the Medical Records (unknown) (no (unknown) (unknown) hemorrhoids (units (un known) date) unknown) (unknown) (no (unknown) (unknown) hydrocortisone-pr (units (unknown) date) amoxine 2.5 %-1 % unknown) rectal cream 1 applic HI BID PRN hemorrhoids (unknown) (no (unknown) (unknown) hydrocortisone-pr (units (unknown) date) amoxine 2.5-1 % unknown) (unknown) (no (unknown) (unknown) may occur. (units (unk nown) date) Occasional unknown) wrong-word or 'sound-alike' substitutions may have (unknown) (no (unknown) (unknown) occurred due to (units (unknown) date) the inherent unknown) limitations of voice recognition software. Please (unknown) (no (unknown) (unknown) on [facility]. No sign (units (unknown) date) of thrombosed or unknown) prolapsed hemorrhoids. (unknown) (no (unknown) (unknown) penicillin G (units (u nknown) date) Allergy (Mild, unknown) Unverified 05/29/22 13:17) (unknown) (no (unknown) (unknown) phenylephrine (units ( unknown) date) 0.25 %-hard fat unknown) 88.7 % rectal suppository 1 supp HI .prn #12 ea (unknown) (no (unknown) (unknown) phenylephrine-andrez (units (unknown) date) d fat 0.25-88.7 % unknown) (unknown) (no (unknown) (unknown) rales, or (units (unkn own) date) rhonchi. unknown) (unknown) (no (unknown) (unknown) read the note (units ( unknown) date) carefully and unknown) recognize, using context, where these substitutions (unknown) (no (unknown) (unknown) software. 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 He denies (units (unknown) date) any abdominal unknown) pain, fevers, nausea or vomiting. He has been (unknown) (no (unknown) (unknown) symptoms persist. (units (unknown) date) Possible unknown) colorectal referral if symptoms do not improve. (unknown) (no (unknown) (unknown) topical cream per (units (unknown) date) patient request. unknown) He should not use the cream for more than 7 (unknown) (no (unknown) (unknown) verbalized (units (unk nown) date) understanding. unknown) Social History date description facility (no date) Never smoked tobacco ([facility] Vital Signs date measurement value units +0000 BMI BMI 31.8 kg/m2 [id number]+0000 BP_diastolic BP_diastolic 90 mm[H g] 79106730513508+0000 BP_systolic BP_systolic 136 mm[Hg] 70076932918829+0000 heart_rate heart_rate 106 /min [id number]+0000 height_metric height_metric 175.26 cm [id number]+0000 height_standard height_standard 69 in [id number]+0000 respiration_rate respiration_rate 14 /min [id number]+0000 temperature_metric temperature_metric 36.06 C [id number]+0000 temperature_standard temperature_standard 9 6.9 F [id number]+0000 weight_metric weight_metric 97.97 kg [id number]+0000 weight_standard weight_standard 215.99 lb [id number]+0000 BMI BMI 27.42 kg/m2 92740937327047+0000 BP_diastolic BP_diastolic 95 mm[H g] 07328371955966+0000 BP_systolic BP_systolic 151 mm[Hg] 71196270872521+0000 heart_rate heart_rate 108 /min [id number]+0000 height_metric height_metric 175.26 cm [id number]+0000 height_standard height_standard 69 in [id number]+0000 respiration_rate respiration_rate 16 /min [id number]+0000 temperature_metric temperature_metric 38.39 C [id number]+0000 temperature_standard temperature_standard 1 01.1 F [id number]+0000 weight_metric weight_metric 83.91 kg [id number]+0000 weight_standard weight_standard 185 lb
== END 2022-08-22 09:21 | disposition home or self-care (01) ==
LOC: ED 08:40
DX: M54.41 Lumbago with sciatica, right side (principal)
CPT/HCPCS: 96372; 99283; J1170

== ENCOUNTER 2023-05-10 09:25 | Outpatient (CLI) | payer MEDICAID ==
[2023-05-10 11:49] LABS: BASOPHILS # (AUTO) 0.1 10^3/uL (0.0-0.1); EOSINOPHILS # (AUTO) 0.1 10^3/uL (0.0-0.7); EOSINOPHILS % (AUTO) 1.7 %; HCT - HEMATOCRIT 49.2 % (42.0-52.0); HGB - HEMOGLOBIN 16.9 g/dL (14.0-18.0); LYMPHOCYTES # (AUTO) 1.7 10^3/uL (1.5-3.5); MEAN CORPUSCULAR HGB CONC 34.3 g/dL (32.0-36.0); MEAN CORPUSCULAR VOLUME 90.1 fL (80.0-94.0); MEAN PLATELET VOLUME 10.4 fL (7.4-11.4); MONOCYTES # (AUTO) 0.7 10^3/uL (0.0-1.0); MONOCYTES % (AUTO) 8.8 %; NEUTROPHILS # (AUTO) 5.7 10^3/uL (1.5-6.6); NEUTROPHILS % (AUTO) 67.7 %; PLT - PLATELET COUNT 290 10^3/uL (130-450); RED BLOOD COUNT 5.46 10^6/uL (4.70-6.10); RED CELL DISTRIBUTION WIDTH 12.6 % (12.0-15.0); WHITE BLOOD COUNT 8.4 x10^3/uL (4.8-10.8)
[2023-05-10 12:16] LABS: ALBUMIN 4.7 g/dL (3.2-5.5); ALBUMIN/GLOBULIN RATIO 1.5 (1.0-2.2); ALKALINE PHOSPHATASE 108 IU/L (42-121); ALT ALANINE AMINOTRANSFERASE 147 IU/L (10-60); AST ASPARTATE AMINOTRANSFERASE 68 IU/L (10-42); BILIRUBIN,TOTAL 0.8 mg/dL (0.2-1.0); BUN - BLOOD UREA NITROGEN 18 mg/dL (6-20); CALCIUM 9.8 mg/dL (8.5-10.3); CARBON DIOXIDE - CO2 27 mmol/L (21-32); CHLORIDE 106 mmol/L (101-111); CHOL/HDL RATIO 5.3 (<5.0); CHOLESTEROL 228 mg/dL; GFR - MDRD 78 (>89); GLUCOSE 113 mg/dL (70-100); HDL CHOLESTEROL 43 mg/dL; LDL CHOLESTEROL,CALCULATED 150 mg/dL; LDL/HDL RATIO 3.5 (<3.6); POTASSIUM 4.1 mmol/L (3.5-5.0); SODIUM 140 mmol/L (135-145); TOTAL PROTEIN 7.8 g/dL (6.7-8.2); TRIGLYCERIDES 174 mg/dL; VLDL CHOLESTEROL 35 mg/dL
[2023-05-10 12:22] LABS: THYROID STIMULATING HORMONE 1.81 uIU/mL (0.34-5.60)
[2023-05-11 10:18] LABS: ESTIMATED AVERAGE GLUCOSE 105 mg/dL (70-100); HEMOGLOBIN A1c% 5.3 % (4.27-6.07)
== END 2023-05-10 09:26 | disposition home or self-care (01) ==
LOC: LAB.N 09:25
PROVIDERS: ATTEND Physician Assistant
DX: R73.01 Impaired fasting glucose (principal); Z13.9 Encounter for screening, unspecified
CPT/HCPCS: 36415; 80053; 80061; 83036; 83721; 84443; 85025